=== PATIENT | female | born 1940 | race Caucasian/White ===

== ENCOUNTER 2024-05-13 03:30 | Emergency (ER) | payer MEDICARE, SELFPAY ==
--- NOTE | ~2024-05-13 | XR_ITS ---
CLINICAL HISTORY: CP L 1 view chest x-ray Comparison: None Findings: Mild left basilar subsegmental atelectasis or infiltrate. Heart size is normal. No acute fracture. IMPRESSION: Mild left basilar subsegmental atelectasis or infiltrate. This document has been electronically signed by: Hayden Celeste MD, PHD on 05/13/2024 04:39:29
--- NOTE | 2024-05-13 03:42 | ECG_ITS ---
Test Reason : CHEST PAIN Blood Pressure : */* mmHG Vent. Rate : 60 BPM Atrial Rate : 60 BPM P-R Int : 164 ms QRS Dur : 88 ms QT Int : 472 ms P-R-T Axes : 38 7 26 degrees QTcB Int : 472 ms Normal sinus rhythm Inferior infarct , age undetermined vs normal variant Abnormal ECG No previous ECGs available Referred By: Generic ED Physician Electronically Signed By: TIANA CEDEÑO
[2024-05-13 03:43] VITALS: BP 115/87; PULSE 65; O2SAT 95; BMI 28.8
--- NOTE | 2024-05-13 03:58 | ED_ITS ---
HPI - Chest Pain General Chief Complaint: Chest Pain Stated Complaint: SN[facility] R CP radiating and reproducible hx dementia Time Seen by Provider: 05/13/24 03:51 Source: patient and EMS Mode of arrival: EMS Limitations: other ( dementia) History of Present Illness ED Provider: Dr. Marlyn Garner HPI narrative: patient comes to the emergency room complaining of left-sided chest pain. Patient told her caretakers at the long term [facility] that she was having chest pain under her left breast. Patient denies shortness of breath. When patient arrived to the emergency room and I spoke with the patient, patient states that she feels well and she has no idea why she is here. After reminding the patient that she complaining earlier of chest pain, she says that she has a sharp pain occasionally under the left breast but it is gone now. Related Data Previous Rx's ?Medication ?Instructions ?Recorded acetaminophen 500 mg tablet 500 mg PO Q6H PRN fever or pain 05/13/24 #20 tabs azithromycin 250 mg tablet 250 mg PO DAILY 4 days #4 tabs 05/13/24 ibuprofen 600 mg tablet 600 mg PO TID PRN fever or pain 05/13/24 #20 tabs Allergies Allergy/AdvReac Type Severity Reaction Status Date / Time zolpidem [From Ambien] Allergy Unknown Verified 05/13/24 03:54 Review of Systems 2 Review of Systems: Constitutional : No Weight loss, No Fever, No Chills, No Night Sweats, No Fatigue, No Malaise ENT/Mouth : No Hearing loss, No Ear Pain, No Nasal Congestion, No Sinus Pain, No Hoarseness, No sore throat, No Rhinorrhea, No Swallowing Difficulty Eyes: No Eye Pain, No Swelling, No Redness, No Foreign Body, No Discharge, No Vision Changes Cardiovascular : Complaining of sharp chest pain which already resolved per patient. No SOB, No Dyspnea on Exertion, No Orthopnea, No Edema, No Palpitations Respiratory : No Cough, No Sputum, No Wheezing, No Smoke Exposure, No Dyspnea Gastrointestinal : No Nausea, No Vomiting, No Diarrhea, No Constipation, No abdominal Pain, No Hematochezia, No Melena Genitourinary : no irregular bleeding, No Dysuria, No Urinary Frequency, No Hematuria, No Urinary Incontinence, No Urgency, No Flank Pain, No Urinary Flow Changes, No Hesitancy Musculoskeletal : No joint pain, No Myalgias, No Joint Swelling Skin : No Skin Lesions, No rash Neuro : No Weakness, No Numbness, No Paresthesias, No Loss of Consciousness, No Dizziness, No Headache Psych : No Anxiety/Panic, No Depression, No SI/HI/AH/VH, No Social Issues, Heme/Lymph: No Bruising, No Bleeding,No Lymphadenopathy Endocrine : No Polyuria, No Polydipsia, No Temperature Intolerance [facility] Past Medical History Medical History Squamous cell carcinoma in situ of skin [place] GERD (gastroesophageal reflux disease) Hyperlipidemia Dementia Surgical History History of cataract surgery Social History Social History Smoked in Last 30 Days: No Use of substances other than those prescribed or required for medical reasons: No Advance Directives: No Advance Directives Information Provided: Yes Do you have a plan to hurt others: No Plan Physical Exam 2 Vital Signs: Vital Signs: BMI result Body Mass Index 28.8 Const: Other: Appearance: Alert. Oriented X1. No acute distress. well-appearing Eyes: Pupils equal, round and reactive to light. ENT: Pharynx normal. Neck: Normal inspection. Neck supple. No lymph nodes noted. No crepitus CVS: Normal heart rate and rhythm. Pulses normal. Normal S1 and S2, mild reproducible pain to palpation Respiratory: No respiratory distress. Breath sounds normal. No Wheezing. No rales Abdomen: Soft and nontender. No rigidity. No distention. Skin: Skin warm and dry. Normal skin color. Normal skin turgor. Extremities: No lower extremity edema. No Lacerations. No Rash Neuro: Oriented X 1. No motor deficit. No sensory deficit. Moving all extremities. No slurred speech. CN 2 through 12 grossly intact Psych: calm, cooperative, normal affect Course Course Course Narrative: all of patient's labs and imaging pending patient states that she is asymptomatic at this time Medical Decision Making Medical Decision Making MDM Narrative: my interpretation of EKG: Normal sinus rhythm, heart rate 60, no ST segment depression or elevation, nonspecific T-wave inversion in 3, QTC 472 my interpretation of labs: No significant abnormality in patient's hematology or chemistry, normal troponin chest x-ray shows a possible infiltrate in the left lower lobe. This correlates where the patient was having pain. Patient's oxygen saturation has been in the steady high 90s without any oxygen desaturations. Differential Diagnosis Differential Diagnoses: The differential diagnosis associated with the presentation includes ( ACS, NSTEMI, pneumonia, musculoskeletal pain, costochondritis) Lab Data MDM Lab Attestation statement: I reviewed the patient's lab results. 05/13/24 04:18 05/13/24 04:18 Labs: Lab Results 05/13/24 Range/Units 04:18 WBC 10.4 (4.8-10.8) X10*3/uL RBC 4.09 L (4.20-5.50) X10*6/uL Hgb 13.2 (12.0-16.0) g/dl Hct 39.0 (37.0-47.0) % MCV 95.4 (80.0-98.0) fL MCH 32.3 (27.0-33.0) pg MCHC 33.8 (31.0-35.0) g/dl RDW 14.5 (11.0-16.0) % Plt Count 217 (160-400) X10*3/uL MPV 9.7 (9.4-12.3) fL Immature Gran % (Auto) 0.6 H (0.0-0.4) % Neut % (Auto) 80.0 H (45-73) % Lymph % (Auto) 11.0 L (20-40) % [place] % (Auto) 6.9 (2-11) % Eos % (Auto) 1.2 (0-4) % Baso % (Auto) 0.3 (0-2) % Lymph # (Auto) 1.1 L (1.2-4.9) X10*3/uL [place] # (Auto) 0.7 (0.1-1.2) X10*3/uL Eos # (Auto) 0.1 (0.0-0.4) X10*3/uL Baso # (Auto) 0.0 (0.0-0.2) X10*3/uL Abs Immat Gran (auto) 0.06 H (0.00-0.03) X10*3/uL Absolute Neuts (auto) 8.3 (2.0-8.3) x10*3/uL Absolute Nucleated RBC 0.000 (0.0-0.012) X10*3/uL Nucleated RBC % (auto) 0.0 (0.0-0.2) /100WBC PT 11.5 (10.9-12.4) SEC INR 1.0 (0.9-1.1) Sodium 139 (135-145) mmol/L Potassium 4.4 (3.3-5.1) mmol/L Chloride 108 (96-108) mmol/L Carbon Dioxide 22 (22-29) mmol/L Anion Gap 13 (12-20) BUN 22 H (9-16) mg/dL Creatinine 0.81 (0.5-1.4) mg/dL Estim Creat Clear Calc 59.4 Estimated GFR > 60 Random Glucose 97 (60-115) mg/dL Calcium 9.1 (8.4-10.2) mg/dL Troponin I High Sens 4.2 (<3.5-17.0) ng/L Independent Interpretation I performed an independent interpretation of an: Plain X-Ray Radiology Impression Discussion of test interpretation with radiology: I have reviewed the radiologist's reading. Radiologist Impression: Mild left basilar subsegmental atelectasis or infiltrate. Heart size is normal. No acute fracture. IMPRESSION: Mild left basilar subsegmental atelectasis or infiltrate. Discharge Plan Discharge Clinical Impression: Pneumonia Patient Disposition: Home, Self-Care Instructions: Community Acquired Pneumonia (ED) Additional Instructions: Please follow-up with your primary care physician tomorrow. If you have any worsening or new symptoms, please return to the emergency room or call 911 Prescriptions: New azithromycin 250 mg tablet 250 mg PO DAILY 4 Days Qty: 4 0RF Rx Instructions: start on day 2 of therapy ibuprofen 600 mg tablet 600 mg PO TID PRN (Reason: fever or pain) Qty: 20 0RF acetaminophen 500 mg tablet 500 mg PO Q6H PRN (Reason: fever or pain) Qty: 20 0RF Print Language: Upper Sorbian
[2024-05-13 04:23] LABS: MANUAL DIFF FLAG NO
[2024-05-13 04:24] LABS: Basophils Percent Auto 0.3 % (0-2); Eosinophils Absolute Auto 0.1 X10*3/uL (0.0-0.4); Eosinophils Percent Auto 1.2 % (0-4); Hemoglobin 13.2 g/dl (12.0-16.0); Imm Gran Abs Auto 0.06 X10*3/uL (0.00-0.03); Imm Gran Pct Auto 0.6 % (0.0-0.4); Lymphocytes Absolute Auto 1.1 X10*3/uL (1.2-4.9); Mean Corpuscular HGB Conc 33.8 g/dl (31.0-35.0); Mean Corpuscular Hemoglobin 32.3 pg (27.0-33.0); Mean Corpuscular Volume 95.4 fL (80.0-98.0); Mean Platelet Volume 9.7 fL (9.4-12.3); Monocytes Absolute Auto 0.7 X10*3/uL (0.1-1.2); Monocytes Percent Auto 6.9 % (2-11); Neutrophils Absolute Auto 8.3 x10*3/uL (2.0-8.3); Platelet Count 217 X10*3/uL (160-400); Red Blood Count 4.09 X10*6/uL (4.20-5.50); Red Cell Distribution Width 14.5 % (11.0-16.0); White Blood Count 10.4 X10*3/uL (4.8-10.8)
[2024-05-13 04:30] LABS: Prothrombin Time 11.5 SEC (10.9-12.4)
[2024-05-13 04:36] LABS: Anion Gap 13 (12-20); Blood Urea Nitrogen 22 mg/dL (9-16); Calcium 9.1 mg/dL (8.4-10.2); Carbon Dioxide 22 mmol/L (22-29); Chloride 108 mmol/L (96-108); Creatinine Clr Calc Pharmacy 59.4; Estimated Glomerular Filt Rate > 60; Glucose Random 97 mg/dL (60-115); Potassium 4.4 mmol/L (3.3-5.1); Sodium 139 mmol/L (135-145)
[2024-05-13 04:44] LABS: Troponin-I High Sensitivity 4.2 ng/L (<3.5-17.0)
[2024-05-13 05:31] VITALS: BP 162/71; PULSE 65; RESP 18; TEMP 36.6; O2SAT 95
[2024-05-13] MEDS: Acetaminophen 325 MG TABLET 650 MG PO (05:33)
[2024-05-13] MEDS: Azithromycin 500 MG TABLET PO (05:35)
[2024-05-13 05:56] VITALS: BP 162/71; PULSE 65; RESP 18; TEMP 36.6; O2SAT 95
== END 2024-05-13 05:59 | disposition home or self-care (01) ==
PROVIDERS: Emergency Provider Emergency Medicine
DX: J18.9 Pneumonia, unspecified organism (principal); R07.89 Other chest pain; N64.4 Mastodynia; F03.90 Unspecified dementia, unspecified severity, without behavioral disturbance, psychotic disturbance, mood disturbance, and anxiety; Z79.899 Other long term (current) drug therapy
CPT/HCPCS: 36415; 71045; 80048; 84484; 85025; 85610; 93005; 99284; 99285

== ENCOUNTER → 2024-05-13 03:42 | Outpatient (BNV) | payer MEDICARE, SELFPAY | PROVIDERS: Emergency Provider Emergency Medicine; Visit Provider Internal Medicine | DX: R94.31 Abnormal electrocardiogram [ECG] [EKG] (principal); R07.9 Chest pain, unspecified | CPT/HCPCS: 93010 ==

== ENCOUNTER → 2024-05-13 03:57 | Outpatient (BNV) | payer MEDICARE, SELFPAY | PROVIDERS: Emergency Provider Emergency Medicine; Visit Provider General Practice | DX: R07.9 Chest pain, unspecified (principal) | CPT/HCPCS: 71045 ==